=== PATIENT | male | born 1970 | race Caucasian/White ===

== ENCOUNTER 2018-03-27 15:25 | Emergency (ER) | payer MEDICAID ==
[~2018-03-27] VITALS: Ht 170.2 cm; Wt 127.0 kg
[2018-03-27 15:25] VITALS: BP_SYST 147
[2018-03-27] MEDS ORDERED: NACL 0.9% 1,000 ML IV ONE ×2 (15:45→16:45)
[2018-03-27] MEDS ORDERED: ONDANSETRON HCL 4 MG/2 ML VIAL IVP ONE (15:45)
[2018-03-27 16:00] LABS: BILIRUBIN,URINE NEGATIVE (NEGATIVE); BLOOD, URINE NEGATIVE (NEGATIVE); CLARITY/URINE CLEAR (CLEAR); COLOR,URINE YELLOW (YELLOW); GLUCOSE,URINE NEGATIVE (NEGATIVE); KETONES,URINE NEGATIVE (NEGATIVE); LEUKOCYTE ESTERASE ,URINE NEGATIVE (NEGATIVE); NITRITE, URINE NEGATIVE (NEGATIVE); PROTEIN URINE NEGATIVE (NEGATIVE); UROBILINOGEN,URINE 0.2 (0.2-1.0)
[2018-03-27] MEDS ORDERED: LORazepam 2 MG/ML VIAL (FOR ER USE) IVP ONE (16:30)
[2018-03-27 16:41] LABS: BARBITURATE, URINE NEGATIVE (NEG <=200); BENZODIAZEPINE, URINE NEGATIVE (NEG <=150); CANNABINOID, URINE NEGATIVE (NEG <=50); COCAINE, URINE NEGATIVE (NEG <=150); METHAMPHETAMINES SCREEN,URINE NEGATIVE (NEG <=500); PHENCYCLIDINE SCREEN,URINE NEGATIVE (NEG <=25); URINE AMPHETAMINE NEGATIVE (NEG <=500); URINE METHADONE NEGATIVE (NEG <=200)
[2018-03-27 16:42] LABS: OPIATE, URINE NEGATIVE (NEG <=100); UR TRICYCLIC ANTIDEPRESSANTS NEGATIVE (NEG <=300); URINE OXYCODONE SCREEN NEGATIVE (NEG <=100); URINE PROPOXYPHENE SCREEN NEGATIVE (NEG <=300)
[2018-03-27 16:52] LABS: BASOPHILS # (AUTO) 0.1 K/uL (0.0-0.2); BASOPHILS % (AUTO) 0.9 % (0.0-2.0); EOSINOPHILS % (AUTO) 0.2 % (0.0-4.0); HEMATOCRIT 45.8 % (36-54); HEMOGLOBIN 15.7 g/dL (14.0-18.0); LYMPHOCYTES # (AUTO) 1.6 K/uL (1.0-5.5); LYMPHOCYTES % (AUTO) 26.4 % (20.5-51.5); MEAN CORPUSCULAR HEMOGLOBIN 32 pg (27-31); MEAN CORPUSCULAR HGB CONC 34 % (32-36); MEAN CORPUSCULAR VOLUME 92 fL (79.0-98.0); MONOCYTES # (AUTO) 0.6 K/uL (0.0-1.0); MONOCYTES % (AUTO) 9.6 % (1.7-9.3); NEUTROPHILS # (AUTO) 3.9 K/uL (1.8-7.7); NEUTROPHILS % (AUTO) 62.9 % (40.0-70.0); PLATELET COUNT (AUTO) 141 K/uL (130-430); RED BLOOD CELL COUNT(AUTO) 4.96 MIL/uL (4.2-6.2); RED CELL DISTRIBUTION WIDTH 15.3 % (9.0-15.0); WHITE BLOOD COUNT (AUTO) 6.2 K/uL (4.8-10.8)
[2018-03-27 17:08] LABS: ALBUMIN 4.2 g/dL (3.4-4.8); CALCIUM 9.1 mg/dL (8.4-11.0); CREATININE 0.56 mg/dL (0.55-1.30); POTASSIUM 3.3 mmol/L (3.5-5.1); TOTAL BILIRUBIN 1.4 mg/dL (0.0-1.0)
[2018-03-27] MEDS ORDERED: POTASSIUM CHLORIDE 20 MEQ/PKT PACKET PO ONE (17:15)
[2018-03-27 17:42] LABS: ACETAMINOPHEN < 1 ug/mL (1-30)
[2018-03-27 17:43] LABS: ALCOHOL, BLOOD 390 mg/dL (<10)
[2018-03-27] MEDS ORDERED: chlordiazePOXIDE HCL 25 MG CAPSULE PO ONE (20:15)
[2018-03-28] MEDS ORDERED: chlordiazePOXIDE HCL 25 MG CAPSULE PO ONE ×2 (02:00→06:15)
[2018-03-28] MEDS ORDERED: LORazepam 2 MG/ML VIAL (FOR ER USE) IVP ONE ×4 (03:15→15:00)
[2018-03-28] MEDS ORDERED: cloNIDine HCL 0.1 MG TABLET PO ONE (14:30)
[2018-03-28 15:50] VITALS: BP_SYST 141
== END 2018-03-28 15:50 ==
LOC: SED 15:25
DX: R45.851 Suicidal ideations (principal); F10.129 Alcohol abuse with intoxication, unspecified; E87.6 Hypokalemia; Y90.8 Blood alcohol level of 240 mg/100 ml or more
CPT/HCPCS: 36415; 80053; 80307; 81003; 83690; 85025; 96361; 96374; 96375; 96376; 99285; G0480; G0481; G0482; J2060 ×2; J2405; J7030

== ENCOUNTER 2019-09-21 17:28 | Inpatient (IN) | payer MEDICAID ==
[~2019-09-21] VITALS: Ht 172.7 cm; Wt 98.9 kg
[2019-09-21 17:40] VITALS: BP_SYST 137
[2019-09-21] MEDS ORDERED: FOLIC ACID 1 MG, THIAMINE HCL 100 MG, MAGNESIUM SULFATE 1 GM, MVI 10 ML in NACL 0.9% 1,... IV ONE (17:45)
[2019-09-21] MEDS ORDERED: LORazepam 2 MG/ML VIAL IVP ONE ×3 (17:45→20:15)
[2019-09-21 18:13] LABS: BASOPHILS # (AUTO) 0.1 K/uL (0.0-0.2); BASOPHILS % (AUTO) 0.6 % (0.0-2.0); MEAN CORPUSCULAR HGB CONC 35 % (32-36); MEAN CORPUSCULAR VOLUME 90 fL (79.0-98.0); MONOCYTES # (AUTO) 0.7 K/uL (0.0-1.0); RED CELL DISTRIBUTION WIDTH 16.9 % (9.0-15.0)
[2019-09-21] MEDS ORDERED: MVI 10 ML VIAL IV ONE (18:23)
[2019-09-21] MEDS ORDERED: MAGNESIUM SULFATE 1 GM/2 ML VIAL ONE (18:23)
[2019-09-21] MEDS ORDERED: THIAMINE HCL 100 MG/ML VIAL ONE (18:23)
[2019-09-21] MEDS ORDERED: FOLIC ACID 5 MG/ML VIAL IV ONE (18:23)
[2019-09-21 18:25] LABS: HEMOGLOBIN 15.6 g/dL (14.0-18.0); RED BLOOD CELL COUNT(AUTO) 4.94 MIL/uL (4.2-6.2); WHITE BLOOD COUNT (AUTO) 10.2 K/uL (4.8-10.8)
[2019-09-21 18:26] LABS: EOSINOPHILS % (AUTO) 0.1 % (0.0-4.0); HEMATOCRIT 44.5 % (36-54); LYMPHOCYTES # (AUTO) 2.5 K/uL (1.0-5.5); LYMPHOCYTES % (AUTO) 24.7 % (20.5-51.5); MEAN CORPUSCULAR HEMOGLOBIN 32 pg (27-31); MONOCYTES % (AUTO) 7.3 % (1.7-9.3); NEUTROPHILS # (AUTO) 6.8 K/uL (1.8-7.7); NEUTROPHILS % (AUTO) 67.3 % (40.0-70.0); PLATELET COUNT (AUTO) 180 K/uL (130-430)
[2019-09-21] MEDS ORDERED: PANTOPRAZOLE SODIUM 40 MG/VIAL (PROTONIX) IVP ONE (18:30)
[2019-09-21] MEDS ORDERED: MORPHINE 2 MG/ML INJ. SYRINGE IVP ONE (18:30)
[2019-09-21 18:44] LABS: ANION GAP 14 (5-15); CALCIUM 9.3 mg/dL (8.4-11.0); CHLORIDE 101 mmol/L (98-107); CREATININE 0.69 mg/dL (0.55-1.30); GLUCOSE 102 mg/dL (70-99); POTASSIUM 3.8 mmol/L (3.5-5.1); SODIUM SERUM 137 mmol/L (136-145); UREA NITROGEN, BLOOD 5 mg/dL (8-21)
[2019-09-21 18:46] LABS: GFR AFRICAN AMERICAN 157 mL/min (>90)
[2019-09-21 18:53] LABS: ALANINE AMINOTRANSFERASE 36 U/L (12-78); ALBUMIN 4.7 g/dL (3.4-4.8); ALCOHOL, BLOOD 329 mg/dL (<10); ASPARTATE AMINOTRANSFERASE 52 U/L (10-37); TOTAL BILIRUBIN 1.5 mg/dL (0.0-1.0)
[2019-09-21 18:54] LABS: ACETAMINOPHEN < 1 ug/mL (1-30)
[2019-09-21] MEDS ORDERED: FOLIC ACID 1 MG, THIAMINE HCL 100 MG, MAGNESIUM SULFATE 1 GM, MVI 10 ML in NACL 0.9% 1,... IV SCH (20:15)
[2019-09-21] MEDS ORDERED: FAMOTIDINE 20 MG TABLET PO SCH (21:00)
[2019-09-21 21:35] VITALS: BP_SYST 132
[2019-09-21] MEDS ORDERED: ONDANSETRON HCL 4 MG/2 ML VIAL IVP PRN (21:45)
[2019-09-21] MEDS ORDERED: PANTOPRAZOLE SODIUM 80 MG in NS 100 ML IV ONE (21:45)
[2019-09-21] MEDS ORDERED: FLU VACC QS2019-20 36MOS UP/PF 60 MCG/0.5 ML SYRINGE I.M. PRN (22:00)
[2019-09-21] MEDS: PANTOPRAZOLE SODIUM 40 MG in NS 50 ML IV SCH (22:44)
[2019-09-21] MEDS: chlordiazePOXIDE HCL 25 MG CAPSULE PO SCH (22:44)
[2019-09-21 22:45] VITALS: BP_SYST 132
[2019-09-21] MEDS ORDERED: PANTOPRAZOLE SODIUM 40 MG/VIAL (PROTONIX) ONE (22:51)
[2019-09-22 01:36] VITALS: BP_SYST 133
[2019-09-22] MEDS: PANTOPRAZOLE SODIUM 40 MG in NS 50 ML IV SCH ×3 (02:34→23:08)
[2019-09-22] MEDS ORDERED: PANTOPRAZOLE SODIUM 40 MG/VIAL (PROTONIX) ONE (02:44)
[2019-09-22 07:03] LABS: BASOPHILS % (AUTO) 0.6 % (0.0-2.0); EOSINOPHILS % (AUTO) 0.4 % (0.0-4.0); HEMATOCRIT 39.4 % (36-54); HEMOGLOBIN 13.5 g/dL (14.0-18.0); LYMPHOCYTES # (AUTO) 1.4 K/uL (1.0-5.5); LYMPHOCYTES % (AUTO) 19.4 % (20.5-51.5); MEAN CORPUSCULAR HEMOGLOBIN 31 pg (27-31); MEAN CORPUSCULAR HGB CONC 34 % (32-36); MEAN CORPUSCULAR VOLUME 91 fL (79.0-98.0); MONOCYTES # (AUTO) 0.6 K/uL (0.0-1.0); MONOCYTES % (AUTO) 7.7 % (1.7-9.3); NEUTROPHILS # (AUTO) 5.2 K/uL (1.8-7.7); NEUTROPHILS % (AUTO) 71.9 % (40.0-70.0); PLATELET COUNT (AUTO) 108 K/uL (130-430); RED BLOOD CELL COUNT(AUTO) 4.32 MIL/uL (4.2-6.2); RED CELL DISTRIBUTION WIDTH 16.7 % (9.0-15.0); WHITE BLOOD COUNT (AUTO) 7.2 K/uL (4.8-10.8)
[2019-09-22 07:05] LABS: INR 1.2 (0.80-1.20); PROTHROMBIN TIME 11.6 SECS (9.5-12.5)
[2019-09-22 07:15] LABS: CALCIUM 8.4 mg/dL (8.4-11.0); CREATININE 0.64 mg/dL (0.55-1.30); POTASSIUM 3.5 mmol/L (3.5-5.1); TOTAL BILIRUBIN 1.9 mg/dL (0.0-1.0)
[2019-09-22] MEDS ORDERED: MAGNESIUM SULFATE 1 GM, THIAMINE HCL 100 MG in NS 100 ML IV SCH (08:00)
[2019-09-22] MEDS: LORazepam 2 MG/ML VIAL IVP PRN ×3 (08:26→20:38)
[2019-09-22] MEDS ORDERED: SIMETHICONE 40 MG/0.6 ML ML ONE (08:54)
[2019-09-22] MEDS ORDERED: MIDAZOLAM HCL 5 MG/5 ML VIAL ONE (08:54)
[2019-09-22] MEDS: MEPERIDINE HCL/PF 100 MG/ML AMP ONE ×2 (08:59→09:02)
[2019-09-22] MEDS: MIDAZOLAM HCL 5 MG/5 ML VIAL ONE ×3 (08:59→09:08)
[2019-09-22] MEDS ORDERED: NEPHROVITE, (FOLIC ACID/VITAMIN B COMP W-C 1 TAB) PO SCH (09:00)
[2019-09-22] MEDS ORDERED: THIAMINE HCL 100 MG TABLET PO SCH (09:00)
[2019-09-22] MEDS ORDERED: FOLIC ACID 1 MG, MVI 10 ML in NACL 0.9% 1,000 ML IV SCH (09:00)
[2019-09-22] MEDS ORDERED: DIPHENHYDRAMINE INJ 50 MG/ML VIAL ONE (09:09)
[2019-09-22] MEDS: chlordiazePOXIDE HCL 25 MG CAPSULE PO SCH ×3 (11:57→20:37)
[2019-09-22 12:33] VITALS: BP_SYST 141
[2019-09-22 16:28] VITALS: BP_SYST 159
[2019-09-22] MEDS ORDERED: cloNIDine HCL 0.1 MG TABLET PO PRN (17:15)
[2019-09-22] MEDS ORDERED: TEMAZEPAM 15 MG CAPSULE PO PRN (17:15)
[2019-09-22 20:00] VITALS: BP_SYST 148
[2019-09-23] VITALS: BP_SYST 144
[2019-09-23 02:12] VITALS: BP_SYST 133
[2019-09-23] MEDS: PANTOPRAZOLE SODIUM 40 MG in NS 50 ML IV SCH ×2 (04:14→09:01)
[2019-09-23] MEDS: LORazepam 2 MG/ML VIAL IVP PRN ×2 (05:22→09:24)
[2019-09-23 07:58] LABS: BASOPHILS % (AUTO) 0.4 % (0.0-2.0); EOSINOPHILS # (AUTO) 0.1 K/uL (0.0-0.4); EOSINOPHILS % (AUTO) 1.5 % (0.0-4.0); HEMATOCRIT 40.3 % (36-54); HEMOGLOBIN 13.8 g/dL (14.0-18.0); LYMPHOCYTES # (AUTO) 1.2 K/uL (1.0-5.5); LYMPHOCYTES % (AUTO) 18.8 % (20.5-51.5); MEAN CORPUSCULAR HEMOGLOBIN 32 pg (27-31); MEAN CORPUSCULAR HGB CONC 34 % (32-36); MEAN CORPUSCULAR VOLUME 92 fL (79.0-98.0); MONOCYTES # (AUTO) 0.5 K/uL (0.0-1.0); NEUTROPHILS # (AUTO) 4.6 K/uL (1.8-7.7); NEUTROPHILS % (AUTO) 71.3 % (40.0-70.0); PLATELET COUNT (AUTO) 82 K/uL (130-430); RED BLOOD CELL COUNT(AUTO) 4.38 MIL/uL (4.2-6.2); RED CELL DISTRIBUTION WIDTH 16.7 % (9.0-15.0); WHITE BLOOD COUNT (AUTO) 6.4 K/uL (4.8-10.8)
[2019-09-23] MEDS: chlordiazePOXIDE HCL 25 MG CAPSULE PO SCH (08:00)
[2019-09-23 08:03] VITALS: BP_SYST 137
[2019-09-23 08:28] LABS: ALBUMIN 3.9 g/dL (3.4-4.8); CALCIUM 8.9 mg/dL (8.4-11.0); CREATININE 0.59 mg/dL (0.55-1.30); POTASSIUM 3.7 mmol/L (3.5-5.1); TOTAL BILIRUBIN 3.3 mg/dL (0.0-1.0)
== END 2019-09-23 12:06 | disposition left against medical advice (07) | DRG 241 ==
LOC: SED 17:28 → STU 20:03
PROVIDERS: ADMIT Internal Medicine; ATTEND Internal Medicine
PROC: 0DB68ZX Excision of Stomach, Via Natural or Artificial Opening Endoscopic, Diagnostic (ICD-10-PCS; principal; 2019-09-22 09:00)
DX: K29.20 Alcoholic gastritis without bleeding (principal); K22.11 Ulcer of esophagus with bleeding; K76.6 Portal hypertension; R65.10 Systemic inflammatory response syndrome (SIRS) of non-infectious origin without acute organ dysfunction; K70.30 Alcoholic cirrhosis of liver without ascites; K22.2 Esophageal obstruction; K44.9 Diaphragmatic hernia without obstruction or gangrene; F17.210 Nicotine dependence, cigarettes, uncomplicated; F32.9 Major depressive disorder, single episode, unspecified; F41.9 Anxiety disorder, unspecified; Z53.29 Procedure and treatment not carried out because of patient's decision for other reasons; Z79.899 Other long term (current) drug therapy; Z90.49 Acquired absence of other specified parts of digestive tract; K27.9 Peptic ulcer, site unspecified, unspecified as acute or chronic, without hemorrhage or perforation
CPT/HCPCS: 36415; 43239; 80053; 82105; 82140-TC; 82272; 85025; 85610-TC; 87081; 88305; 88312; 88313; 93005; 96374; 96375; 96376; 99285; C9113; G0378; G0480; G0481; G0482; J1200; J2060; J2175; J2250; J2270; J3411; J3475; J3490; J7030

== ENCOUNTER 2021-09-11 07:23 | Inpatient (IN) | payer MEDICAID, SELFPAY ==
[~2021-09-11] VITALS: Ht 167.6 cm; Wt 104.3 kg
[2021-09-11 07:23] VITALS: BP_SYST 133
[2021-09-11] MEDS ORDERED: NACL 0.9% 1,000 ML IV ONE (07:45)
[2021-09-11] MEDS ORDERED: ONDANSETRON HCL 4 MG/2 ML VIAL IVP ONE (07:45)
[2021-09-11] MEDS ORDERED: LORazepam 2 MG/ML VIAL IVP ONE ×4 (07:45→12:45)
[2021-09-11 08:11] LABS: BASOPHILS % (AUTO) 0.2 % (0.0-2.0); HEMATOCRIT 43.6 % (36-54); LYMPHOCYTES # (AUTO) 1.6 K/uL (1.0-5.5); LYMPHOCYTES % (AUTO) 11.2 % (20.5-51.5); MEAN CORPUSCULAR HEMOGLOBIN 31 pg (27-31); MEAN CORPUSCULAR HGB CONC 34 % (32-36); MEAN CORPUSCULAR VOLUME 90 fL (79.0-98.0); MONOCYTES # (AUTO) 1.1 K/uL (0.0-1.0); NEUTROPHILS # (AUTO) 11.4 K/uL (1.8-7.7); NEUTROPHILS % (AUTO) 80.6 % (40.0-70.0); PLATELET COUNT (AUTO) 203 K/uL (130-430); RED BLOOD CELL COUNT(AUTO) 4.84 MIL/uL (4.2-6.2); RED CELL DISTRIBUTION WIDTH 15.5 % (9.0-15.0); WHITE BLOOD COUNT (AUTO) 14.2 K/uL (4.8-10.8)
[2021-09-11 08:23] LABS: ANION GAP 22 (5-15); CALCIUM 9.3 mg/dL (8.4-11.0); CHLORIDE 94 mmol/L (98-107); CREATININE 0.77 mg/dL (0.55-1.30); GLUCOSE 129 mg/dL (70-99); POTASSIUM 3.1 mmol/L (3.5-5.1); SODIUM SERUM 134 mmol/L (136-145); UREA NITROGEN, BLOOD 5 mg/dL (8-21)
[2021-09-11 08:27] LABS: GFR AFRICAN AMERICAN 138 mL/min (>90)
[2021-09-11 08:29] LABS: ALANINE AMINOTRANSFERASE 47 U/L (12-78); ALBUMIN 4.6 g/dL (3.4-4.8); ALCOHOL, BLOOD 149 mg/dL (<10); AMYLASE 89 U/L (0-100); ASPARTATE AMINOTRANSFERASE 54 U/L (10-37); INR 1.1 (0.80-1.20); LIPASE 90 U/L (73-393); PROTHROMBIN TIME 11.3 SECS (9.5-12.5); TOTAL BILIRUBIN 1.6 mg/dL (0.0-1.0)
[2021-09-11 08:38] LABS: ACETONE, SERUM NEGATIVE (NEGATIVE)
[2021-09-11] MEDS ORDERED: NACL 0.9% 2,000 ML IV ONE (08:45)
[2021-09-11] MEDS ORDERED: NEU100 PO (08:47)
[2021-09-11] MEDS ORDERED: MAG HYDROX/AL HYDROX/SIMETH 30 ML, DICYCLOMINE HCL 20 MG, LIDOCAINE VISCOUS 2% 15ML (PO... PO ONE ×3 (09:00)
[2021-09-11] MEDS: D5NS 1,000 ML IV SCH (11:11)
[2021-09-11] MEDS ORDERED: LORazepam 1 MG TABLET ONE (11:13)
[2021-09-11] MEDS ORDERED: LORazepam 1 MG TABLET PO ONE (11:15)
[2021-09-11 12:15] LABS: BARBITURATE, URINE NEGATIVE (NEG <=200); BENZODIAZEPINE, URINE POSITIVE (NEG <=150); CANNABINOID, URINE POSITIVE (NEG <=50); COCAINE, URINE NEGATIVE (NEG <=150); METHAMPHETAMINES SCREEN,URINE NEGATIVE (NEG <=500); OPIATE, URINE NEGATIVE (NEG <=100); PHENCYCLIDINE SCREEN,URINE NEGATIVE (NEG <=25); UR TRICYCLIC ANTIDEPRESSANTS POSITIVE (NEG <=300); URINE AMPHETAMINE NEGATIVE (NEG <=500); URINE METHADONE NEGATIVE (NEG <=200); URINE OXYCODONE SCREEN NEGATIVE (NEG <=100); URINE PROPOXYPHENE SCREEN NEGATIVE (NEG <=300)
[2021-09-11] MEDS ORDERED: IBUPROFEN 800 MG TABLET PO ONE (12:45)
[2021-09-11] MEDS ORDERED: FOLIC ACID 1 MG, THIAMINE HCL 100 MG, MAGNESIUM SULFATE 1 GM, MVI 10 ML in NACL 0.9% 1,... IV SCH (13:45)
[2021-09-11] MEDS: LORazepam 2 MG/ML VIAL IVP PRN ×2 (14:16→23:27)
[2021-09-11 14:38] VITALS: BP_SYST 158
[2021-09-11 20:00] VITALS: BP_SYST 152
[2021-09-11] MEDS: PANTOPRAZOLE SODIUM 40 MG/VIAL (PROTONIX) IVP SCH (23:27)
[2021-09-11] MEDS: THIAMINE HCL 100 MG, MAGNESIUM SULFATE 1 GM in NS 100 ML IV SCH (23:28)
[2021-09-11] MEDS: FOLIC ACID 1 MG, MVI 10 ML in NACL 0.9% 1,000 ML IV SCH (23:28)
[2021-09-12 00:30] VITALS: BP_SYST 138
[2021-09-12] MEDS ORDERED: HYDROcodone/ACETAMIN 5-325 MG TAB (NORCO/ VICODIN) PO PRN (01:45)
[2021-09-12] MEDS ORDERED: ACETAMINOPHEN 325 MG TABLET PO PRN (01:45)
[2021-09-12] MEDS: HYDROcodone/ACETAMIN 10-325 MG TAB PO PRN ×4 (01:46→21:02)
[2021-09-12] MEDS: D5NS 1,000 ML IV SCH ×2 (04:21→16:21)
[2021-09-12 05:52] VITALS: BP_SYST 91
[2021-09-12] MEDS: LORazepam 2 MG/ML VIAL IVP PRN ×4 (05:52→20:16)
[2021-09-12 07:11] LABS: BASOPHILS % (AUTO) 0.4 % (0.0-2.0); EOSINOPHILS % (AUTO) 0.1 % (0.0-4.0); HEMATOCRIT 38.1 % (36-54); HEMOGLOBIN 13.2 g/dL (14.0-18.0); LYMPHOCYTES # (AUTO) 1.4 K/uL (1.0-5.5); LYMPHOCYTES % (AUTO) 24.8 % (20.5-51.5); MEAN CORPUSCULAR HEMOGLOBIN 31 pg (27-31); MEAN CORPUSCULAR HGB CONC 35 % (32-36); MEAN CORPUSCULAR VOLUME 91 fL (79.0-98.0); MONOCYTES # (AUTO) 0.6 K/uL (0.0-1.0); MONOCYTES % (AUTO) 10.4 % (1.7-9.3); NEUTROPHILS # (AUTO) 3.7 K/uL (1.8-7.7); NEUTROPHILS % (AUTO) 64.3 % (40.0-70.0); PLATELET COUNT (AUTO) 75 K/uL (130-430); RED BLOOD CELL COUNT(AUTO) 4.21 MIL/uL (4.2-6.2); RED CELL DISTRIBUTION WIDTH 15.3 % (9.0-15.0); WHITE BLOOD COUNT (AUTO) 5.7 K/uL (4.8-10.8)
[2021-09-12 07:20] LABS: ALBUMIN 3.9 g/dL (3.4-4.8); CALCIUM 8.2 mg/dL (8.4-11.0); CREATININE 0.62 mg/dL (0.55-1.30)
[2021-09-12 08:00] VITALS: BP_SYST 148
[2021-09-12] MEDS: PANTOPRAZOLE SODIUM 40 MG/VIAL (PROTONIX) IVP SCH ×2 (08:05→21:02)
[2021-09-12 08:31] LABS: TOTAL BILIRUBIN 3.4 mg/dL (0.0-1.0)
[2021-09-12] MEDS ORDERED: MIDAZOLAM HCL 5 MG/5 ML VIAL ONE (09:51)
[2021-09-12] MEDS ORDERED: fentaNYL CITRATE/PF 100 MCG/2 ML AMP ONE (09:51)
[2021-09-12] MEDS ORDERED: SIMETHICONE 40 MG/0.6 ML ML ONE (09:51)
[2021-09-12] MEDS ORDERED: DIPHENHYDRAMINE INJ 50 MG/ML VIAL ONE (10:14)
[2021-09-12] MEDS ORDERED: K PHOS 30 MM in NS 250 ML IV ONE (13:45)
[2021-09-12] MEDS: FOLIC ACID 1 MG, MVI 10 ML in NACL 0.9% 1,000 ML IV SCH (14:00)
[2021-09-12] MEDS: THIAMINE HCL 100 MG, MAGNESIUM SULFATE 1 GM in NS 100 ML IV SCH (14:10)
[2021-09-12 16:00] VITALS: BP_SYST 130
[2021-09-12] MEDS: ONDANSETRON HCL 4 MG/2 ML VIAL IVP PRN ×2 (16:44→21:02)
[2021-09-12 20:00] VITALS: BP_SYST 152
[2021-09-13] VITALS: BP_SYST 148
[2021-09-13] MEDS: LORazepam 2 MG/ML VIAL IVP PRN ×4 (00:19→13:48)
[2021-09-13] MEDS: D5NS 1,000 ML IV SCH ×2 (01:59→10:04)
[2021-09-13] MEDS: HYDROcodone/ACETAMIN 10-325 MG TAB PO PRN (02:00)
[2021-09-13] MEDS: ONDANSETRON HCL 4 MG/2 ML VIAL IVP PRN ×3 (02:00→12:55)
[2021-09-13 07:22] LABS: BASOPHILS % (AUTO) 0.8 % (0.0-2.0); EOSINOPHILS # (AUTO) 0.2 K/uL (0.0-0.4); EOSINOPHILS % (AUTO) 5.3 % (0.0-4.0); HEMATOCRIT 36.5 % (36-54); HEMOGLOBIN 12.6 g/dL (14.0-18.0); LYMPHOCYTES % (AUTO) 27.3 % (20.5-51.5); MEAN CORPUSCULAR HEMOGLOBIN 31 pg (27-31); MEAN CORPUSCULAR HGB CONC 35 % (32-36); MEAN CORPUSCULAR VOLUME 91 fL (79.0-98.0); MONOCYTES # (AUTO) 0.3 K/uL (0.0-1.0); MONOCYTES % (AUTO) 9.3 % (1.7-9.3); NEUTROPHILS # (AUTO) 2.2 K/uL (1.8-7.7); NEUTROPHILS % (AUTO) 57.3 % (40.0-70.0); PLATELET COUNT (AUTO) 64 K/uL (130-430); RED BLOOD CELL COUNT(AUTO) 4.02 MIL/uL (4.2-6.2); RED CELL DISTRIBUTION WIDTH 14.8 % (9.0-15.0); WHITE BLOOD COUNT (AUTO) 3.8 K/uL (4.8-10.8)
[2021-09-13 07:53] LABS: CALCIUM 8.3 mg/dL (8.4-11.0); CREATININE 0.58 mg/dL (0.55-1.30); POTASSIUM 3.1 mmol/L (3.5-5.1)
[2021-09-13 08:00] VITALS: BP_SYST 145
[2021-09-13] MEDS: PANTOPRAZOLE SODIUM 40 MG/VIAL (PROTONIX) IVP SCH (08:35)
[2021-09-13 12:00] VITALS: BP_SYST 142
[2021-09-13] MEDS: FOLIC ACID 1 MG, MVI 10 ML in NACL 0.9% 1,000 ML IV SCH (13:49)
[2021-09-13] MEDS: THIAMINE HCL 100 MG, MAGNESIUM SULFATE 1 GM in NS 100 ML IV SCH (13:49)
[2021-09-13] MEDS ORDERED: FOLI-43 PO (15:40)
[2021-09-13] MEDS ORDERED: PRO40 PO (15:40)
[2021-09-13] MEDS ORDERED: THIA100T70 PO (15:40)
[2021-09-13] MEDS ORDERED: MULT-1117 PO (15:40)
[2021-09-13 16:52] VITALS: BP_SYST 145
== END 2021-09-13 17:45 | disposition home or self-care (01) | DRG 242 ==
LOC: SED 07:23 → STU 10:57
PROVIDERS: ADMIT Preventive Medicine Preventive Medicine/Occupational Environmental Medicine; ATTEND Preventive Medicine Preventive Medicine/Occupational Environmental Medicine
PROC: 0DB78ZX Excision of Stomach, Pylorus, Via Natural or Artificial Opening Endoscopic, Diagnostic (ICD-10-PCS; 2021-09-12)
PROC: 0DB38ZX Excision of Lower Esophagus, Via Natural or Artificial Opening Endoscopic, Diagnostic (ICD-10-PCS; principal; 2021-09-12 10:00)
DX: K22.11 Ulcer of esophagus with bleeding (principal); D61.818 Other pancytopenia; K29.71 Gastritis, unspecified, with bleeding; K57.31 Diverticulosis of large intestine without perforation or abscess with bleeding; E87.2 Acidosis; E83.39 Other disorders of phosphorus metabolism; E83.41 Hypermagnesemia; E83.51 Hypocalcemia; E87.1 Hypo-osmolality and hyponatremia; K29.70 Gastritis, unspecified, without bleeding; E87.6 Hypokalemia; R73.9 Hyperglycemia, unspecified; K74.60 Unspecified cirrhosis of liver; Z20.822 Contact with and (suspected) exposure to COVID-19; D72.829 Elevated white blood cell count, unspecified; F10.20 Alcohol dependence, uncomplicated; K70.10 Alcoholic hepatitis without ascites; E83.52 Hypercalcemia; F32.A Depression, unspecified; G62.9 Polyneuropathy, unspecified; K44.9 Diaphragmatic hernia without obstruction or gangrene; Z87.11 Personal history of peptic ulcer disease; Z90.49 Acquired absence of other specified parts of digestive tract; Z79.899 Other long term (current) drug therapy
CPT/HCPCS: 36415; 43239; 76376; 80048; 80053; 80307; 82009; 82150; 83605; 83690; 83735; 84100; 85025; 85610-TC; 85730-TC; 86886; 86900; 86901; 87081; 88305; 88312; 88313; 93005; 96361; 96374; 96375; 99285; C9113; G0378; G0482; J1200; J2001; J2060; J2250; J2405; J3010; J3411; J3475; J3490; J7030; J7050

== ENCOUNTER 2022-03-05 09:32 | Inpatient (IN) | payer MEDICAID ==
[~2022-03-05] VITALS: Ht 167.6 cm; Wt 103.4 kg
[~2022-03-05 09:32] MED LIST: FOLI-43 PO; MULT-1117 PO; NEU100 PO; PRO40 PO; THIA100T70 PO
[2022-03-05 09:38] VITALS: BP_SYST 141
[2022-03-05] MEDS ORDERED: LORazepam 2 MG/ML VIAL IM ONE ×2 (10:00→13:45)
[2022-03-05] MEDS ORDERED: OCTREOTIDE ACETATE 50 MCG/ML AMP IVP ONE (10:00)
[2022-03-05] MEDS ORDERED: NACL 0.9% 2,000 ML IV SCH (10:00)
[2022-03-05] MEDS ORDERED: PROCHLORPERAZINE EDISYLATE 10 MG/2 ML VIAL IM ONE (10:00)
[2022-03-05] MEDS ORDERED: OCTREOTIDE ACETATE 1,250 MCG in NS 243.75 ML IV ONE (10:00)
[2022-03-05] MEDS ORDERED: LORazepam 2 MG/ML VIAL ONE (10:24)
[2022-03-05] MEDS ORDERED: MAGNESIUM SULFATE 50 ML IV ONE (10:30)
[2022-03-05] MEDS ORDERED: LORazepam 2 MG/ML VIAL IVP ONE ×2 (10:30→11:00)
[2022-03-05 11:11] LABS: HEMATOCRIT 38.1 % (36-54); HEMOGLOBIN 13.4 g/dL (14.0-18.0); MEAN CORPUSCULAR HEMOGLOBIN 31 pg (27-31); MEAN CORPUSCULAR HGB CONC 35 % (32-36); MEAN CORPUSCULAR VOLUME 88 fL (79.0-98.0); PLATELET COUNT (AUTO) 108 K/uL (130-430); RED BLOOD CELL COUNT(AUTO) 4.33 MIL/uL (4.2-6.2); RED CELL DISTRIBUTION WIDTH 14.6 % (9.0-15.0); WHITE BLOOD COUNT (AUTO) 10.7 K/uL (4.8-10.8)
[2022-03-05 11:24] LABS: CHLORIDE 90 mmol/L (98-107); CREATININE 0.93 mg/dL (0.55-1.30); GLUCOSE 156 mg/dL (70-99); SODIUM SERUM 132 mmol/L (136-145); UREA NITROGEN, BLOOD 26 mg/dL (8-21)
[2022-03-05 11:35] LABS: INR 1.3 (0.80-1.20); PROTHROMBIN TIME 12.9 SECS (9.5-12.5)
[2022-03-05 11:38] LABS: ALANINE AMINOTRANSFERASE 61 U/L (12-78); ALBUMIN 3.7 g/dL (3.4-4.8); ANION GAP 19 (5-15); ASPARTATE AMINOTRANSFERASE 72 U/L (10-37); TOTAL BILIRUBIN 2.4 mg/dL (0.0-1.0)
[2022-03-05 11:49] LABS: GFR AFRICAN AMERICAN 111 mL/min (>90)
[2022-03-05 11:51] LABS: ALCOHOL, BLOOD 51 mg/dL (<10); POTASSIUM 2.6 mmol/L (3.5-5.1)
[2022-03-05 12:07] LABS: ACETONE, SERUM NEGATIVE (NEGATIVE)
[2022-03-05] MEDS ORDERED: POTASSIUM CHLORIDE 20 MEQ/PKT PACKET PO ONE (14:15)
[2022-03-05] MEDS ORDERED: ALPRAZolam 0.25 MG TABLET PO ONE (14:30)
[2022-03-05] MEDS ORDERED: KCL 20 mEq in 100 mL (PREMIX) 100 ML IV ONE (14:45)
[2022-03-05] MEDS ORDERED: LACTULOSE 20 GM/30 ML UDC PO ONE (15:00)
[2022-03-05] MEDS ORDERED: NACL IV ONE (15:00)
[2022-03-05] MEDS ORDERED: FOLIC ACID IV ONE (15:00)
[2022-03-05] MEDS ORDERED: MVI IV ONE (15:00)
[2022-03-05] MEDS ORDERED: THIAMINE HCL IV ONE (15:00)
[2022-03-05] MEDS ORDERED: FOLIC ACID 1 MG, THIAMINE HCL 100 MG, MAGNESIUM SULFATE 1 GM, MVI 10 ML in NACL 0.9% 1,... IV ONE (16:00)
[2022-03-05] MEDS ORDERED: THIAMINE HCL 100 MG in NS 100 ML IV ONE (17:00)
[2022-03-05] MEDS ORDERED: FOLIC ACID 1 MG, MVI 10 ML in NACL 0.9% 1,000 ML IV ONE (17:00)
[2022-03-05 17:12] LABS: BILIRUBIN,URINE NEGATIVE (NEGATIVE); BLOOD, URINE NEGATIVE (NEGATIVE); CLARITY/URINE CLEAR (CLEAR); COLOR,URINE YELLOW (YELLOW); GLUCOSE,URINE NEGATIVE (NEGATIVE); KETONES,URINE TRACE (NEGATIVE); LEUKOCYTE ESTERASE ,URINE NEGATIVE (NEGATIVE); NITRITE, URINE NEGATIVE (NEGATIVE); PROTEIN URINE NEGATIVE (NEGATIVE)
[2022-03-05 17:25] LABS: BARBITURATE, URINE NEGATIVE (NEG <=200); BENZODIAZEPINE, URINE POSITIVE (NEG <=150); CANNABINOID, URINE POSITIVE (NEG <=50); COCAINE, URINE NEGATIVE (NEG <=150); METHAMPHETAMINES SCREEN,URINE NEGATIVE (NEG <=500); OPIATE, URINE NEGATIVE (NEG <=100); PHENCYCLIDINE SCREEN,URINE NEGATIVE (NEG <=25); URINE AMPHETAMINE NEGATIVE (NEG <=500); URINE METHADONE NEGATIVE (NEG <=200); URINE OXYCODONE SCREEN NEGATIVE (NEG <=100); URINE PROPOXYPHENE SCREEN NEGATIVE (NEG <=300)
[2022-03-05 17:26] LABS: UR TRICYCLIC ANTIDEPRESSANTS POSITIVE (NEG <=300)
[2022-03-05] MEDS ORDERED: POTASSIUM CHLORIDE 20 MEQ in NS 250 ML IV ONE (18:00)
[2022-03-05] MEDS: PANTOPRAZOLE SODIUM 40 MG/VIAL (PROTONIX) IVP SCH (20:56)
[2022-03-05] MEDS: chlordiazePOXIDE HCL 25 MG CAPSULE PO PRN (20:57)
[2022-03-05] MEDS: cloNIDine HCL 0.1 MG TABLET PO SCH (20:57)
[2022-03-05 22:00] VITALS: BP_SYST 132
[2022-03-05 23:00] VITALS: BP_SYST 134
[2022-03-06] VITALS (22 sets, daily range): BP systolic 118–150
[2022-03-06 06:45] LABS: BASOPHILS % (AUTO) 0.3 % (0.0-2.0); EOSINOPHILS % (AUTO) 0.2 % (0.0-4.0); HEMATOCRIT 30.3 % (36-54); HEMOGLOBIN 10.5 g/dL (14.0-18.0); LYMPHOCYTES # (AUTO) 1.4 K/uL (1.0-5.5); LYMPHOCYTES % (AUTO) 20.6 % (20.5-51.5); MEAN CORPUSCULAR HEMOGLOBIN 31 pg (27-31); MEAN CORPUSCULAR HGB CONC 35 % (32-36); MEAN CORPUSCULAR VOLUME 90 fL (79.0-98.0); MONOCYTES # (AUTO) 0.5 K/uL (0.0-1.0); MONOCYTES % (AUTO) 7.4 % (1.7-9.3); NEUTROPHILS # (AUTO) 4.8 K/uL (1.8-7.7); NEUTROPHILS % (AUTO) 71.5 % (40.0-70.0); PLATELET COUNT (AUTO) 64 K/uL (130-430); RED BLOOD CELL COUNT(AUTO) 3.37 MIL/uL (4.2-6.2); RED CELL DISTRIBUTION WIDTH 15.1 % (9.0-15.0); WHITE BLOOD COUNT (AUTO) 6.7 K/uL (4.8-10.8)
[2022-03-06 07:01] LABS: CALCIUM 7.9 mg/dL (8.4-11.0); CREATININE 0.76 mg/dL (0.55-1.30)
[2022-03-06] MEDS: chlordiazePOXIDE HCL 25 MG CAPSULE PO PRN ×3 (08:34→19:59)
[2022-03-06] MEDS ORDERED: FOLIC ACID 1 MG, THIAMINE HCL 100 MG, MAGNESIUM SULFATE 1 GM, MVI 10 ML in NACL 0.9% 1,... IV ONE (08:45)
[2022-03-06] MEDS ORDERED: THIAMINE HCL 100 MG, MAGNESIUM SULFATE 1 GM in NS 100 ML IV ONE ×2 (09:00→18:00)
[2022-03-06] MEDS ORDERED: FOLIC ACID 1 MG, MVI 10 ML in NACL 0.9% 1,000 ML IV ONE ×2 (09:00→18:00)
[2022-03-06] MEDS ORDERED: POTASSIUM CHLORIDE 20 MEQ/PKT PACKET PO ONE (09:15)
[2022-03-06] MEDS: PANTOPRAZOLE SODIUM 40 MG/VIAL (PROTONIX) IVP SCH ×2 (09:37→21:30)
[2022-03-06] MEDS: THIAMINE HCL 100 MG TABLET PO SCH (09:37)
[2022-03-06] MEDS: cloNIDine HCL 0.1 MG TABLET PO SCH ×2 (09:38→21:31)
[2022-03-06] MEDS ORDERED: chlordiazePOXIDE HCL 25 MG CAPSULE PO ONE ×2 (17:55→18:00)
[2022-03-06] MEDS ORDERED: ACETAMINOPHEN 325 MG TABLET PO PRN (20:30)
[2022-03-07] VITALS (24 sets, daily range): BP systolic 106–167
[2022-03-07] MEDS: chlordiazePOXIDE HCL 25 MG CAPSULE PO PRN ×3 (01:02→14:44)
[2022-03-07 07:13] LABS: CALCIUM 7.8 mg/dL (8.4-11.0); CREATININE 0.63 mg/dL (0.55-1.30); POTASSIUM 3.4 mmol/L (3.5-5.1)
[2022-03-07 07:20] LABS: BASOPHILS % (AUTO) 0.5 % (0.0-2.0); EOSINOPHILS # (AUTO) 0.1 K/uL (0.0-0.4); HEMATOCRIT 27.6 % (36-54); HEMOGLOBIN 9.5 g/dL (14.0-18.0); LYMPHOCYTES # (AUTO) 0.7 K/uL (1.0-5.5); LYMPHOCYTES % (AUTO) 18.2 % (20.5-51.5); MEAN CORPUSCULAR HEMOGLOBIN 31 pg (27-31); MEAN CORPUSCULAR HGB CONC 34 % (32-36); MEAN CORPUSCULAR VOLUME 91 fL (79.0-98.0); MONOCYTES # (AUTO) 0.3 K/uL (0.0-1.0); MONOCYTES % (AUTO) 7.4 % (1.7-9.3); NEUTROPHILS # (AUTO) 2.8 K/uL (1.8-7.7); NEUTROPHILS % (AUTO) 70.9 % (40.0-70.0); PLATELET COUNT (AUTO) 60 K/uL (130-430); RED BLOOD CELL COUNT(AUTO) 3.03 MIL/uL (4.2-6.2); RED CELL DISTRIBUTION WIDTH 15.3 % (9.0-15.0)
[2022-03-07] MEDS ORDERED: FOLIC ACID 1 MG, THIAMINE HCL 100 MG, MAGNESIUM SULFATE 1 GM, MVI 10 ML in NACL 0.9% 1,... IV ONE (08:15)
[2022-03-07] MEDS ORDERED: POTASSIUM CHLORIDE 20 MEQ/PKT PACKET PO ONE (08:15)
[2022-03-07] MEDS: PANTOPRAZOLE SODIUM 40 MG/VIAL (PROTONIX) IVP SCH ×2 (08:24→21:34)
[2022-03-07] MEDS: cloNIDine HCL 0.1 MG TABLET PO SCH (08:24)
[2022-03-07] MEDS: THIAMINE HCL 100 MG TABLET PO SCH (08:24)
[2022-03-07] MEDS ORDERED: THIAMINE HCL 100 MG, MAGNESIUM SULFATE 1 GM in NS 100 ML IV ONE (08:30)
[2022-03-07] MEDS ORDERED: FOLIC ACID 1 MG, MVI 10 ML in NACL 0.9% 1,000 ML IV ONE (08:30)
[2022-03-07] MEDS: ONDANSETRON HCL 4 MG/2 ML VIAL IVP PRN ×2 (12:50→19:06)
[2022-03-07] MEDS ORDERED: NOREPINEPHRINE 4 MG/4 ML VIAL IV ONE (13:57)
[2022-03-07] MEDS: cloNIDine HCL 0.1 MG TABLET PO PRN (16:03)
[2022-03-07 21:03] LABS: INR 1.3 (0.80-1.20); PROTHROMBIN TIME 13.3 SECS (9.5-12.5)
[2022-03-07] MEDS: GABAPENTIN 400 MG CAPSULE PO SCH (21:34)
[2022-03-07] MEDS: QUEtiapine FUMARATE 200 MG TAB.SR.24H PO SCH (21:34)
[2022-03-08] VITALS (24 sets, daily range): BP systolic 104–138
[2022-03-08 06:55] LABS: CALCIUM 8.1 mg/dL (8.4-11.0); CREATININE 0.65 mg/dL (0.55-1.30)
[2022-03-08 07:03] LABS: BASOPHILS % (AUTO) 0.4 % (0.0-2.0); EOSINOPHILS # (AUTO) 0.1 K/uL (0.0-0.4); EOSINOPHILS % (AUTO) 3.5 % (0.0-4.0); HEMATOCRIT 27.1 % (36-54); HEMOGLOBIN 9.4 g/dL (14.0-18.0); LYMPHOCYTES # (AUTO) 0.7 K/uL (1.0-5.5); LYMPHOCYTES % (AUTO) 18.7 % (20.5-51.5); MEAN CORPUSCULAR HEMOGLOBIN 32 pg (27-31); MEAN CORPUSCULAR HGB CONC 35 % (32-36); MEAN CORPUSCULAR VOLUME 92 fL (79.0-98.0); MONOCYTES # (AUTO) 0.3 K/uL (0.0-1.0); MONOCYTES % (AUTO) 9.2 % (1.7-9.3); NEUTROPHILS # (AUTO) 2.5 K/uL (1.8-7.7); NEUTROPHILS % (AUTO) 68.2 % (40.0-70.0); PLATELET COUNT (AUTO) 60 K/uL (130-430); RED BLOOD CELL COUNT(AUTO) 2.96 MIL/uL (4.2-6.2); RED CELL DISTRIBUTION WIDTH 15.5 % (9.0-15.0); WHITE BLOOD COUNT (AUTO) 3.7 K/uL (4.8-10.8)
[2022-03-08 07:56] LABS: POTASSIUM 3.8 mmol/L (3.5-5.1)
[2022-03-08] MEDS: GABAPENTIN 400 MG CAPSULE PO SCH ×3 (08:58→20:27)
[2022-03-08] MEDS: THIAMINE HCL 100 MG TABLET PO SCH (08:58)
[2022-03-08] MEDS: PANTOPRAZOLE SODIUM 40 MG/VIAL (PROTONIX) IVP SCH ×2 (08:58→20:27)
[2022-03-08] MEDS: chlordiazePOXIDE HCL 25 MG CAPSULE PO PRN ×2 (08:58→14:32)
[2022-03-08] MEDS: cloNIDine HCL 0.1 MG TABLET PO PRN ×2 (09:00→17:55)
[2022-03-08] MEDS: SERTRALINE HCL 50 MG TABLET PO SCH (09:02)
[2022-03-08] MEDS: ONDANSETRON HCL 4 MG/2 ML VIAL IVP PRN ×2 (09:15→17:55)
[2022-03-08] MEDS: QUEtiapine FUMARATE 200 MG TAB.SR.24H PO SCH (20:28)
[2022-03-09] VITALS (16 sets, daily range): BP systolic 92–131
[2022-03-09] MEDS: chlordiazePOXIDE HCL 25 MG CAPSULE PO PRN ×4 (04:00→23:46)
[2022-03-09] MEDS: ONDANSETRON HCL 4 MG/2 ML VIAL IVP PRN ×2 (05:26→16:21)
[2022-03-09 06:32] LABS: CALCIUM 7.9 mg/dL (8.4-11.0); CREATININE 0.85 mg/dL (0.55-1.30); POTASSIUM 3.6 mmol/L (3.5-5.1)
[2022-03-09 06:38] LABS: BASOPHILS % (AUTO) 0.5 % (0.0-2.0); EOSINOPHILS # (AUTO) 0.2 K/uL (0.0-0.4); EOSINOPHILS % (AUTO) 3.4 % (0.0-4.0); HEMATOCRIT 28.5 % (36-54); HEMOGLOBIN 9.8 g/dL (14.0-18.0); LYMPHOCYTES # (AUTO) 0.9 K/uL (1.0-5.5); LYMPHOCYTES % (AUTO) 18.9 % (20.5-51.5); MEAN CORPUSCULAR HEMOGLOBIN 32 pg (27-31); MEAN CORPUSCULAR HGB CONC 35 % (32-36); MEAN CORPUSCULAR VOLUME 91 fL (79.0-98.0); MONOCYTES # (AUTO) 0.7 K/uL (0.0-1.0); MONOCYTES % (AUTO) 14.4 % (1.7-9.3); NEUTROPHILS # (AUTO) 2.8 K/uL (1.8-7.7); NEUTROPHILS % (AUTO) 62.8 % (40.0-70.0); PLATELET COUNT (AUTO) 70 K/uL (130-430); RED BLOOD CELL COUNT(AUTO) 3.12 MIL/uL (4.2-6.2); RED CELL DISTRIBUTION WIDTH 16.1 % (9.0-15.0); WHITE BLOOD COUNT (AUTO) 4.5 K/uL (4.8-10.8)
[2022-03-09] MEDS: PANTOPRAZOLE SODIUM 40 MG/VIAL (PROTONIX) IVP SCH ×2 (08:27→22:03)
[2022-03-09] MEDS: SERTRALINE HCL 50 MG TABLET PO SCH (08:27)
[2022-03-09] MEDS: GABAPENTIN 400 MG CAPSULE PO SCH ×3 (08:27→20:42)
[2022-03-09] MEDS: THIAMINE HCL 100 MG TABLET PO SCH (08:27)
[2022-03-09] MEDS: cloNIDine HCL 0.1 MG TABLET PO PRN ×2 (11:00→16:21)
[2022-03-09] MEDS: QUEtiapine FUMARATE 200 MG TAB.SR.24H PO SCH (20:42)
[2022-03-10 00:42] VITALS: BP_SYST 117
[2022-03-10] MEDS: ONDANSETRON HCL 4 MG/2 ML VIAL IVP PRN ×2 (04:31→14:29)
[2022-03-10] MEDS: chlordiazePOXIDE HCL 25 MG CAPSULE PO PRN ×3 (05:54→21:24)
[2022-03-10 08:23] VITALS: BP_SYST 121
[2022-03-10] MEDS: THIAMINE HCL 100 MG TABLET PO SCH (08:53)
[2022-03-10] MEDS: SERTRALINE HCL 50 MG TABLET PO SCH (08:53)
[2022-03-10] MEDS: GABAPENTIN 400 MG CAPSULE PO SCH ×3 (08:53→21:24)
[2022-03-10] MEDS: PANTOPRAZOLE SODIUM 40 MG/VIAL (PROTONIX) IVP SCH ×2 (08:54→21:23)
[2022-03-10 11:43] VITALS: BP_SYST 98
[2022-03-10 16:00] VITALS: BP_SYST 105
[2022-03-10 19:00] VITALS: BP_SYST 126
[2022-03-10] MEDS ORDERED: NALOXONE HCL 0.4 MG/ML AMP (NARCAN) IVP PRN (19:30)
[2022-03-10 20:00] VITALS: BP_SYST 126
[2022-03-10] MEDS: HYDROmorphone 1 MG/ML INJ. CARTRIDGE IVP PRN (21:22)
[2022-03-10] MEDS: QUEtiapine FUMARATE 200 MG TAB.SR.24H PO SCH (21:23)
[2022-03-11 00:29] VITALS: BP_SYST 92
[2022-03-11] MEDS: chlordiazePOXIDE HCL 25 MG CAPSULE PO PRN ×3 (03:39→22:12)
[2022-03-11] MEDS: HYDROmorphone 1 MG/ML INJ. CARTRIDGE IVP PRN ×5 (03:44→22:27)
[2022-03-11 06:51] LABS: BASOPHILS % (AUTO) 0.5 % (0.0-2.0); EOSINOPHILS # (AUTO) 0.2 K/uL (0.0-0.4); EOSINOPHILS % (AUTO) 4.2 % (0.0-4.0); HEMOGLOBIN 9.6 g/dL (14.0-18.0); LYMPHOCYTES # (AUTO) 1.2 K/uL (1.0-5.5); LYMPHOCYTES % (AUTO) 30.4 % (20.5-51.5); MEAN CORPUSCULAR HEMOGLOBIN 31 pg (27-31); MEAN CORPUSCULAR HGB CONC 34 % (32-36); MEAN CORPUSCULAR VOLUME 91 fL (79.0-98.0); MONOCYTES % (AUTO) 25.2 % (1.7-9.3); NEUTROPHILS # (AUTO) 1.5 K/uL (1.8-7.7); NEUTROPHILS % (AUTO) 39.7 % (40.0-70.0); PLATELET COUNT (AUTO) 103 K/uL (130-430); RED BLOOD CELL COUNT(AUTO) 3.09 MIL/uL (4.2-6.2); RED CELL DISTRIBUTION WIDTH 15.6 % (9.0-15.0); WHITE BLOOD COUNT (AUTO) 3.9 K/uL (4.8-10.8)
[2022-03-11 07:54] LABS: CALCIUM 8.1 mg/dL (8.4-11.0); CREATININE 0.67 mg/dL (0.55-1.30); POTASSIUM 3.3 mmol/L (3.5-5.1)
[2022-03-11 08:00] VITALS: BP_SYST 104
[2022-03-11] MEDS: THIAMINE HCL 100 MG TABLET PO SCH (08:46)
[2022-03-11] MEDS: GABAPENTIN 400 MG CAPSULE PO SCH ×3 (08:46→20:26)
[2022-03-11] MEDS: PANTOPRAZOLE SODIUM 40 MG/VIAL (PROTONIX) IVP SCH ×2 (08:46→20:26)
[2022-03-11] MEDS: SERTRALINE HCL 50 MG TABLET PO SCH (08:47)
[2022-03-11 11:27] VITALS: BP_SYST 102
[2022-03-11 15:41] VITALS: BP_SYST 100
[2022-03-11 20:00] VITALS: BP_SYST 119
[2022-03-11] MEDS: QUEtiapine FUMARATE 200 MG TAB.SR.24H PO SCH (20:26)
[2022-03-12] VITALS: BP_SYST 121
[2022-03-12 04:00] VITALS: BP_SYST 118
[2022-03-12] MEDS: HYDROmorphone 1 MG/ML INJ. CARTRIDGE IVP PRN ×5 (06:40→22:46)
[2022-03-12 07:19] LABS: BASOPHILS % (AUTO) 0.7 % (0.0-2.0); EOSINOPHILS # (AUTO) 0.2 K/uL (0.0-0.4); EOSINOPHILS % (AUTO) 5.3 % (0.0-4.0); HEMATOCRIT 28.1 % (36-54); HEMOGLOBIN 9.5 g/dL (14.0-18.0); LYMPHOCYTES # (AUTO) 1.1 K/uL (1.0-5.5); LYMPHOCYTES % (AUTO) 31.1 % (20.5-51.5); MEAN CORPUSCULAR HEMOGLOBIN 30 pg (27-31); MEAN CORPUSCULAR HGB CONC 34 % (32-36); MEAN CORPUSCULAR VOLUME 90 fL (79.0-98.0); MONOCYTES # (AUTO) 0.8 K/uL (0.0-1.0); MONOCYTES % (AUTO) 24.1 % (1.7-9.3); NEUTROPHILS # (AUTO) 1.3 K/uL (1.8-7.7); NEUTROPHILS % (AUTO) 38.8 % (40.0-70.0); PLATELET COUNT (AUTO) 113 K/uL (130-430); RED BLOOD CELL COUNT(AUTO) 3.14 MIL/uL (4.2-6.2); WHITE BLOOD COUNT (AUTO) 3.5 K/uL (4.8-10.8)
[2022-03-12 07:54] VITALS: BP_SYST 115
[2022-03-12 08:19] LABS: ALBUMIN 2.7 g/dL (3.4-4.8); CALCIUM 8.2 mg/dL (8.4-11.0); CREATININE 0.92 mg/dL (0.55-1.30); POTASSIUM 3.7 mmol/L (3.5-5.1); TOTAL BILIRUBIN 0.9 mg/dL (0.0-1.0)
[2022-03-12] MEDS: GABAPENTIN 400 MG CAPSULE PO SCH ×3 (08:48→20:18)
[2022-03-12] MEDS: PANTOPRAZOLE SODIUM 40 MG/VIAL (PROTONIX) IVP SCH ×2 (08:48→20:18)
[2022-03-12] MEDS: THIAMINE HCL 100 MG TABLET PO SCH (08:48)
[2022-03-12] MEDS: SERTRALINE HCL 50 MG TABLET PO SCH (08:48)
[2022-03-12] MEDS: chlordiazePOXIDE HCL 25 MG CAPSULE PO PRN (08:49)
[2022-03-12 11:29] VITALS: BP_SYST 100
[2022-03-12] MEDS ORDERED: LACTULOSE 20 GM/30 ML UDC PO ONE (13:45)
[2022-03-12 15:10] VITALS: BP_SYST 126
[2022-03-12] MEDS: QUEtiapine FUMARATE 200 MG TAB.SR.24H PO SCH (20:18)
[2022-03-12 20:23] VITALS: BP_SYST 118
[2022-03-13 00:09] VITALS: BP_SYST 112
[2022-03-13] MEDS: HYDROmorphone 1 MG/ML INJ. CARTRIDGE IVP PRN ×4 (04:46→17:51)
[2022-03-13 08:00] VITALS: BP_SYST 112
[2022-03-13] MEDS: GABAPENTIN 400 MG CAPSULE PO SCH ×3 (09:01→21:26)
[2022-03-13] MEDS: SERTRALINE HCL 50 MG TABLET PO SCH (09:01)
[2022-03-13] MEDS: PANTOPRAZOLE SODIUM 40 MG/VIAL (PROTONIX) IVP SCH ×2 (09:01→21:27)
[2022-03-13] MEDS: THIAMINE HCL 100 MG TABLET PO SCH (09:09)
[2022-03-13 11:32] VITALS: BP_SYST 98
[2022-03-13 15:43] VITALS: BP_SYST 113
[2022-03-13] MEDS: chlordiazePOXIDE HCL 25 MG CAPSULE PO PRN (18:06)
[2022-03-13 20:10] VITALS: BP_SYST 114
[2022-03-13] MEDS: QUEtiapine FUMARATE 200 MG TAB.SR.24H PO SCH (21:27)
[2022-03-14] MEDS: HYDROmorphone 1 MG/ML INJ. CARTRIDGE IVP PRN ×2 (00:16→04:41)
[2022-03-14 01:08] VITALS: BP_SYST 105
[2022-03-14] MEDS ORDERED: LIB25 PO ×2 (07:49→07:51)
[2022-03-14] MEDS ORDERED: QUET200T5 PO (07:51)
[2022-03-14] MEDS ORDERED: SERT100T PO (07:52)
[2022-03-14] MEDS ORDERED: PRO40 PO ×2 (07:56→07:58)
[2022-03-14] MEDS: PANTOPRAZOLE SODIUM 40 MG/VIAL (PROTONIX) IVP SCH (09:00)
[2022-03-14] MEDS: GABAPENTIN 400 MG CAPSULE PO SCH (09:10)
[2022-03-14] MEDS: THIAMINE HCL 100 MG TABLET PO SCH (09:10)
[2022-03-14] MEDS: SERTRALINE HCL 50 MG TABLET PO SCH (09:11)
[2022-03-14 09:15] VITALS: BP_SYST 116
== END 2022-03-14 09:27 | disposition home or self-care (01) | DRG 280 ==
LOC: SED 09:32 → SIC 15:59 → STU 03-09 18:46 → SMU 03-12 13:10
PROVIDERS: ADMIT Family Medicine; ATTEND Family Medicine
DX: K74.60 Unspecified cirrhosis of liver (principal); K70.9 Alcoholic liver disease, unspecified; R65.11 Systemic inflammatory response syndrome (SIRS) of non-infectious origin with acute organ dysfunction; E87.2 Acidosis; E44.1 Mild protein-calorie malnutrition; F10.239 Alcohol dependence with withdrawal, unspecified; R50.9 Fever, unspecified; D64.9 Anemia, unspecified; E87.6 Hypokalemia; I10 Essential (primary) hypertension; Y90.9 Presence of alcohol in blood, level not specified; Z20.822 Contact with and (suspected) exposure to COVID-19; Z79.899 Other long term (current) drug therapy; Z56.0 Unemployment, unspecified; Z68.36 Body mass index [BMI] 36.0-36.9, adult
CPT/HCPCS: 36415; 70450-TC; 71045; 76376; 76700-TC; 80048; 80053; 80307; 81003; 82009; 82140; 82150; 83051; 83605; 83690; 83735; 85014; 85025; 85048; 85049-TC; 85610-TC; 85730-TC; 86886; 86900; 86901; 87040; 87081; 93005; 96361; 96372; 96374; 96375; 97116-GP; 97530-GP; 99285; C9113; G0378; G0482; J1170; J2060; J2354; J2405; J3411; J3475; J3480; J3490; J7030; J7050

== ENCOUNTER 2022-05-13 18:29 | Emergency (ER) | payer MEDICAID ==
[~2022-05-13] VITALS: Ht 167.6 cm; Wt 108.0 kg
[~2022-05-13 18:29] MED LIST changes: -FOLI-43 PO; +LIB25 PO; -MULT-1117 PO; +QUET200T5 PO; +SERT100T PO
[2022-05-13 18:41] VITALS: BP_SYST 147
[2022-05-13] MEDS ORDERED: FAMOTIDINE PF 20 MG/2 ML VIAL IVP ONE (19:00)
[2022-05-13] MEDS ORDERED: KETOROLAC TROMETHAMINE 15 MG VIAL IVP ONE (19:00)
[2022-05-13] MEDS ORDERED: ONDANSETRON HCL 4 MG/2 ML VIAL IVP ONE ×2 (19:00→21:15)
[2022-05-13 19:20] LABS: EOSINOPHILS # (AUTO) 0.1 K/uL (0.0-0.4); EOSINOPHILS % (AUTO) 1.8 % (0.0-4.0); HEMATOCRIT 32.2 % (36-54); HEMOGLOBIN 10.6 g/dL (14.0-18.0); LYMPHOCYTES # (AUTO) 1.4 K/uL (1.0-5.5); LYMPHOCYTES % (AUTO) 31.2 % (20.5-51.5); MEAN CORPUSCULAR HEMOGLOBIN 25 pg (27-31); MEAN CORPUSCULAR HGB CONC 33 % (32-36); MEAN CORPUSCULAR VOLUME 76 fL (79.0-98.0); MONOCYTES # (AUTO) 0.5 K/uL (0.0-1.0); MONOCYTES % (AUTO) 11.2 % (1.7-9.3); NEUTROPHILS # (AUTO) 2.4 K/uL (1.8-7.7); NEUTROPHILS % (AUTO) 54.8 % (40.0-70.0); PLATELET COUNT (AUTO) 133 K/uL (130-430); RED BLOOD CELL COUNT(AUTO) 4.26 MIL/uL (4.2-6.2); RED CELL DISTRIBUTION WIDTH 21.6 % (9.0-15.0); WHITE BLOOD COUNT (AUTO) 4.5 K/uL (4.8-10.8)
[2022-05-13 19:32] LABS: CALCIUM 7.7 mg/dL (8.4-11.0); CREATININE 0.81 mg/dL (0.55-1.30); POTASSIUM 3.5 mmol/L (3.5-5.1)
[2022-05-13 19:38] LABS: ALBUMIN 3.3 g/dL (3.4-4.8); TOTAL BILIRUBIN 0.9 mg/dL (0.0-1.0)
[2022-05-13] MEDS ORDERED: FAMOTIDINE 20 MG TABLET PO ONE (20:30)
[2022-05-13] MEDS ORDERED: ONDANSETRON 4 MG ODT TAB PO ONE (20:30)
[2022-05-13] MEDS ORDERED: MAG-AL HYDROX/SIMETH 30 ML UDC PO ONE (20:30)
[2022-05-13] MEDS ORDERED: KETOROLAC TROMETHAMINE 30 MG VIAL IM ONE (20:30)
[2022-05-13] MEDS ORDERED: LORazepam 2 MG/ML VIAL IVP ONE (21:30)
[2022-05-13] MEDS ORDERED: NACL 0.9% 1,000 ML IV ONE (21:45)
[2022-05-13] MEDS ORDERED: LIB25 PO (22:09)
[2022-05-13] MEDS ORDERED: FAMO20TA8 PO (22:15)
[2022-05-13 23:35] VITALS: BP_SYST 107
== END 2022-05-13 23:31 | disposition home or self-care (01) ==
LOC: SED 18:29
DX: K29.20 Alcoholic gastritis without bleeding (principal); E86.0 Dehydration; R10.11 Right upper quadrant pain; F10.239 Alcohol dependence with withdrawal, unspecified; Y90.6 Blood alcohol level of 120-199 mg/100 ml; Z79.899 Other long term (current) drug therapy
CPT/HCPCS: 36415; 80053; 83690; 85025; 96372; 96374; 96375; 99284; J1885; J2060; J2405; J3490

== ENCOUNTER 2022-06-06 22:30 | Emergency (ER) | payer MEDICAID ==
[~2022-06-06] VITALS: Ht 167.6 cm; Wt 108.0 kg
[~2022-06-06 22:30] MED LIST changes: +FAMO20TA8 PO
[2022-06-06 22:40] VITALS: BP_SYST 156
[2022-06-07 01:58] VITALS: BP_SYST 140
[2022-06-07 02:00] LABS: MEAN CORPUSCULAR HGB CONC 32 % (32-36)
[2022-06-07 02:02] LABS: BILIRUBIN,URINE NEGATIVE (NEGATIVE); BLOOD, URINE NEGATIVE (NEGATIVE); CLARITY/URINE CLEAR (CLEAR); COLOR,URINE YELLOW (YELLOW); GLUCOSE,URINE NEGATIVE (NEGATIVE); KETONES,URINE NEGATIVE (NEGATIVE); LEUKOCYTE ESTERASE ,URINE NEGATIVE (NEGATIVE); NITRITE, URINE NEGATIVE (NEGATIVE); PH,URINE 6.5 (5.0-8.0); PROTEIN URINE NEGATIVE (NEGATIVE); UROBILINOGEN,URINE 0.2 (0.2-1.0)
[2022-06-07 02:24] LABS: BASOPHILS # (AUTO) 0.1 K/uL (0.0-0.2); BASOPHILS % (AUTO) 1.2 % (0.0-2.0); EOSINOPHILS # (AUTO) 0.2 K/uL (0.0-0.4); EOSINOPHILS % (AUTO) 3.9 % (0.0-4.0); HEMATOCRIT 34.6 % (36-54); LYMPHOCYTES # (AUTO) 2.5 K/uL (1.0-5.5); LYMPHOCYTES % (AUTO) 40.2 % (20.5-51.5); MEAN CORPUSCULAR HEMOGLOBIN 23 pg (27-31); MEAN CORPUSCULAR VOLUME 74 fL (79.0-98.0); MONOCYTES # (AUTO) 0.5 K/uL (0.0-1.0); NEUTROPHILS # (AUTO) 2.9 K/uL (1.8-7.7); NEUTROPHILS % (AUTO) 46.7 % (40.0-70.0); PLATELET COUNT (AUTO) 230 K/uL (130-430); RED BLOOD CELL COUNT(AUTO) 4.69 MIL/uL (4.2-6.2); RED CELL DISTRIBUTION WIDTH 21.7 % (9.0-15.0); WHITE BLOOD COUNT (AUTO) 6.3 K/uL (4.8-10.8)
[2022-06-07 02:32] LABS: CALCIUM 8.2 mg/dL (8.4-11.0); CREATININE 0.8 mg/dL (0.55-1.30); POTASSIUM 3.8 mmol/L (3.5-5.1)
[2022-06-07 02:39] LABS: ALBUMIN 3.5 g/dL (3.4-4.8); TOTAL BILIRUBIN 0.9 mg/dL (0.0-1.0)
== END 2022-06-07 02:40 | disposition left against medical advice (07) ==
LOC: SED 22:30
DX: R25.1 Tremor, unspecified (principal); F10.239 Alcohol dependence with withdrawal, unspecified; Y90.6 Blood alcohol level of 120-199 mg/100 ml; Z79.899 Other long term (current) drug therapy
CPT/HCPCS: 36415; 80053; 81003; 83690; 85025; 99283

== ENCOUNTER 2022-11-14 10:53 | Emergency (ER) | payer MEDICAID ==
[~2022-11-14] VITALS: Ht 170.2 cm; Wt 79.4 kg
[2022-11-14 11:00] VITALS: BP_SYST 158
[2022-11-14] MEDS ORDERED: HALOPERIDOL LACTATE 5 MG/ML VIAL ONE (11:21)
[2022-11-14] MEDS ORDERED: HALOPERIDOL LACTATE 5 MG/ML VIAL IM ONE (11:30)
[2022-11-14 11:59] LABS: BASOPHILS # (AUTO) 0.1 K/uL (0.0-0.2); BASOPHILS % (AUTO) 0.7 % (0.0-2.0); HEMATOCRIT 39.8 % (36-54); HEMOGLOBIN 12.9 g/dL (14.0-18.0); LYMPHOCYTES # (AUTO) 0.8 K/uL (1.0-5.5); LYMPHOCYTES % (AUTO) 8.6 % (20.5-51.5); MEAN CORPUSCULAR HEMOGLOBIN 25 pg (27-31); MEAN CORPUSCULAR HGB CONC 32 % (32-36); MEAN CORPUSCULAR VOLUME 76 fL (79.0-98.0); MONOCYTES # (AUTO) 0.5 K/uL (0.0-1.0); MONOCYTES % (AUTO) 5.7 % (1.7-9.3); PLATELET COUNT (AUTO) 292 K/uL (130-430); RED BLOOD CELL COUNT(AUTO) 5.27 MIL/uL (4.2-6.2); RED CELL DISTRIBUTION WIDTH 18.9 % (9.0-15.0); WHITE BLOOD COUNT (AUTO) 9.4 K/uL (4.8-10.8)
[2022-11-14] MEDS ORDERED: NACL 0.9% 2,000 ML IV ONE ×2 (12:15→14:15)
[2022-11-14] MEDS ORDERED: LORazepam 2 MG/ML VIAL IVP ONE (12:15)
[2022-11-14 12:16] LABS: ANION GAP 20 (5-15); CALCIUM 9.7 mg/dL (8.4-11.0); CHLORIDE 95 mmol/L (98-107); CREATININE 0.67 mg/dL (0.55-1.30); GFR AFRICAN AMERICAN 161 mL/min (>90); GLUCOSE 137 mg/dL (70-99); UREA NITROGEN, BLOOD 9 mg/dL (8-21)
[2022-11-14 12:22] LABS: ALANINE AMINOTRANSFERASE 56 U/L (12-78); ALBUMIN 4.2 g/dL (3.4-4.8); AMYLASE 77 U/L (0-100); ASPARTATE AMINOTRANSFERASE 63 U/L (10-37); LACTATE DEHYDROGENASE 261 U/L (85-227); LIPASE 102 U/L (73-393); TOTAL BILIRUBIN 1.6 mg/dL (0.0-1.0)
[2022-11-14 12:23] LABS: C-REACTIVE PROTEIN QUANT < 0.2 mg/dL (0-0.5)
[2022-11-14 12:25] LABS: ACETONE, SERUM NEGATIVE (NEGATIVE)
[2022-11-14 12:39] LABS: INR 1.1 (0.80-1.20); PROTHROMBIN TIME 11.4 SECS (9.5-12.5)
[2022-11-14] MEDS ORDERED: ONDA-8 TL (15:12)
[2022-11-14] MEDS ORDERED: LORA-259 PO (15:12)
== END 2022-11-14 16:30 | disposition home or self-care (01) ==
LOC: SED 10:53
DX: F10.10 Alcohol abuse, uncomplicated (principal); R11.15 Cyclical vomiting syndrome unrelated to migraine; R10.13 Epigastric pain; Y90.6 Blood alcohol level of 120-199 mg/100 ml; R10.11 Right upper quadrant pain; Z79.899 Other long term (current) drug therapy
CPT/HCPCS: 99285; 74176; 96374; 96361; 80053; 82009; 82150; 83615; 83690; 85025; 85610; 85730; 86140; 36415; 76376; 83605; 96372; G0482; J1630; J2060; J7030

== ENCOUNTER 2023-07-15 16:08 | Emergency (ER) | payer MEDICAID ==
[~2023-07-15] VITALS: Ht 167.6 cm; Wt 86.2 kg
[~2023-07-15 16:08] MED LIST changes: +LORA-259 PO; +ONDA-8 TL
[2023-07-15 16:31] VITALS: BP_SYST 122; PULSE 77; RESP 22; TEMP 98.3; O2SAT 98
[2023-07-15 17:05] LABS: BASOPHILS % (AUTO) 0.6 % (0.0-2.0); EOSINOPHILS # (AUTO) 0.1 K/uL (0.0-0.4); EOSINOPHILS % (AUTO) 1.2 % (0.0-4.0); HEMATOCRIT 41.6 % (36-54); HEMOGLOBIN 13.4 g/dL (14.0-18.0); LYMPHOCYTES # (AUTO) 1.5 K/uL (1.0-5.5); MEAN CORPUSCULAR HEMOGLOBIN 27 pg (27-31); MEAN CORPUSCULAR HGB CONC 32 % (32-36); MEAN CORPUSCULAR VOLUME 85 fL (79.0-98.0); MONOCYTES # (AUTO) 0.4 K/uL (0.0-1.0); MONOCYTES % (AUTO) 7.8 % (1.7-9.3); NEUTROPHILS # (AUTO) 3.6 K/uL (1.8-7.7); NEUTROPHILS % (AUTO) 63.4 % (40.0-70.0); PLATELET COUNT (AUTO) 122 K/uL (130-430); RED BLOOD CELL COUNT(AUTO) 4.92 MIL/uL (4.2-6.2); RED CELL DISTRIBUTION WIDTH 18.1 % (9.0-15.0); WHITE BLOOD COUNT (AUTO) 5.7 K/uL (4.8-10.8)
[2023-07-15 17:24] LABS: ALBUMIN 4.1 g/dL (3.4-4.8); CALCIUM 9.2 mg/dL (8.4-11.0); CREATININE 0.72 mg/dL (0.55-1.30); POTASSIUM 3.1 mmol/L (3.5-5.1); TOTAL BILIRUBIN 1.5 mg/dL (0.0-1.0); TOTAL PROTEIN, SERUM 7.8 g/dL (6.4-8.3)
[2023-07-15 18:51] VITALS: BP_SYST 133; PULSE 80; RESP 20; TEMP 98; O2SAT 99
[2023-07-15 18:51] LABS: BILIRUBIN,URINE NEGATIVE (NEGATIVE); BLOOD, URINE TRACE (NEGATIVE); CLARITY/URINE CLEAR (CLEAR); COLOR,URINE YELLOW (YELLOW); GLUCOSE,URINE NEGATIVE (NEGATIVE); KETONES,URINE NEGATIVE (NEGATIVE); LEUKOCYTE ESTERASE ,URINE NEGATIVE (NEGATIVE); NITRITE, URINE NEGATIVE (NEGATIVE); PH,URINE 6.5 (5.0-8.0); PROTEIN URINE NEGATIVE (NEGATIVE); UROBILINOGEN,URINE 0.2 (0.2-1.0)
[2023-07-15 18:54] LABS: ACETAMINOPHEN < 1 ug/mL (1-30); SALICYLATE < 1 mg/dL (3-30)
[2023-07-15 18:55] LABS: BARBITURATE, URINE NEGATIVE (NEG <=200); BENZODIAZEPINE, URINE POSITIVE (NEG <=150); CANNABINOID, URINE POSITIVE (NEG <=50); COCAINE, URINE NEGATIVE (NEG <=150); METHAMPHETAMINES SCREEN,URINE NEGATIVE (NEG <=500); OPIATE, URINE NEGATIVE (NEG <=100); PHENCYCLIDINE SCREEN,URINE NEGATIVE (NEG <=25); URINE AMPHETAMINE NEGATIVE (NEG <=500); URINE METHADONE NEGATIVE (NEG <=200); URINE OXYCODONE SCREEN NEGATIVE (NEG <=100); URINE PROPOXYPHENE SCREEN NEGATIVE (NEG <=300)
[2023-07-15 18:56] LABS: UR TRICYCLIC ANTIDEPRESSANTS NEGATIVE (NEG <=300)
[2023-07-15 19:21] LABS: BACTERIA,URINE RARE /HPF (None Seen); MUCUS,URINE None Seen /LPF (None Seen); RBC,URINE 0-3 /HPF (0-3); WBC,URINE 0-3 /HPF (0-3)
[2023-07-15] MEDS ORDERED: NS 500 ML IV ONE (19:45)
[2023-07-15] MEDS ORDERED: PANTOPRAZOLE SODIUM 40 MG/VIAL (PROTONIX) IVP ONE (19:45)
[2023-07-15] MEDS ORDERED: MAG HYDROX/AL HYDROX/SIMETH 30 ML, DICYCLOMINE HCL 20 MG, LIDOCAINE VISCOUS 2% 15ML (PO... PO ONE ×3 (19:45)
[2023-07-15] MEDS ORDERED: DICYCLOMINE HCL 10 MG/5 ML SOLUTION ONE (20:00)
[2023-07-15] MEDS ORDERED: MAG-AL HYDROX/SIMETH 30 ML UDC ONE (20:00)
== END 2023-07-15 20:25 | disposition left against medical advice (07) ==
LOC: SED 16:08
DX: R10.13 Epigastric pain (principal); F10.129 Alcohol abuse with intoxication, unspecified; R11.2 Nausea with vomiting, unspecified; R19.7 Diarrhea, unspecified; Z79.899 Other long term (current) drug therapy; Y90.6 Blood alcohol level of 120-199 mg/100 ml
CPT/HCPCS: 99284; 74176; 80307; 80053; 83690; 85025; 36415; 93005; 76376; 81000; J7040; G0480; G0481; G0482; C9113

== ENCOUNTER 2024-08-28 17:49 | Inpatient (IN) | payer MEDICAID ==
[~2024-08-28] VITALS: Ht 177.8 cm; Wt 99.8 kg
[2024-08-28 17:49] VITALS: BP_SYST 142; PULSE 97; RESP 17; TEMP 97.7; O2SAT 96
[~2024-08-28 17:49] MED LIST changes: +CHLO25CA11 PO; -LIB25 PO
[2024-08-28] MEDS: NACL 0.9% 1,000 ML IV ONE (18:56)
[2024-08-28 19:14] LABS: WHITE BLOOD COUNT (AUTO) 12.7 K/uL (4.8-10.8)
[2024-08-28 19:25] LABS: ALBUMIN 4.3 g/dL (3.4-4.8); CALCIUM 8.8 mg/dL (8.4-11.0); CREATININE 0.88 mg/dL (0.55-1.30); POTASSIUM 3.6 mmol/L (3.5-5.1); TOTAL BILIRUBIN 1.2 mg/dL (0.0-1.0)
[2024-08-28 19:26] LABS: BILIRUBIN,DIRECT 0.3 mg/dL (0.0-0.3)
[2024-08-28 19:30] LABS: BASOPHILS % (AUTO) 0.2 % (0.0-2.0); HEMATOCRIT 51.3 % (36-54); HEMOGLOBIN 17.7 g/dL (14.0-18.0); LYMPHOCYTES # (AUTO) 1.7 K/uL (1.0-5.5); LYMPHOCYTES % (AUTO) 13.6 % (20.5-51.5); MEAN CORPUSCULAR HEMOGLOBIN 31 pg (27-31); MEAN CORPUSCULAR HGB CONC 35 % (32-36); MEAN CORPUSCULAR VOLUME 89 fL (79.0-98.0); MONOCYTES # (AUTO) 0.8 K/uL (0.0-1.0); MONOCYTES % (AUTO) 6.5 % (1.7-9.3); NEUTROPHILS # (AUTO) 10.1 K/uL (1.8-7.7); NEUTROPHILS % (AUTO) 79.7 % (40.0-70.0); PLATELET COUNT (AUTO) 151 K/uL (130-430); RED BLOOD CELL COUNT(AUTO) 5.78 MIL/uL (4.2-6.2); RED CELL DISTRIBUTION WIDTH 13.9 % (9.0-15.0)
[2024-08-28] MEDS: HALOPERIDOL LACTATE 5 MG/ML VIAL IM ONE ×2 (19:47→22:47)
[2024-08-28] MEDS: LORazepam 2 MG/ML VIAL IM ONE ×2 (19:47→22:43)
[2024-08-28] MEDS: DIPHENHYDRAMINE INJ 50 MG/ML VIAL IM ONE ×2 (19:48→22:48)
[2024-08-29] VITALS (7 sets, daily range): BP systolic 142–167; PULSE 103–128; RESP 18–24; TEMP 97.5–98.6; O2SAT 96–98
[2024-08-29] MEDS: NACL 0.9% 1,000 ML IV ONE (01:33)
[2024-08-29] MEDS: LORazepam 2 MG/ML VIAL IVP ONE ×2 (02:09→04:41)
[2024-08-29] MEDS: DIPHENHYDRAMINE INJ 50 MG/ML VIAL IVP ONE (05:25)
[2024-08-29] MEDS: HALOPERIDOL LACTATE 5 MG/ML VIAL IVP ONE ×2 (05:31→09:48)
[2024-08-29] MEDS: NACL 0.9% 1,000 ML IV SCH (05:41)
[2024-08-29] MEDS: chlordiazePOXIDE HCL 25 MG CAPSULE PO SCH (09:52)
[2024-08-29] MEDS: THIAMINE HCL 100 MG TABLET PO SCH (09:52)
[2024-08-29] MEDS: FOLIC ACID 1 MG TABLET PO SCH (09:53)
[2024-08-29] MEDS: LORazepam 2 MG/ML VIAL IVP PRN (11:49)
[2024-08-29] MEDS: PANTOPRAZOLE SODIUM 40 MG TAB PO ONE (11:53)
[2024-08-29] MEDS: SERTRALINE HCL 50 MG TABLET PO ONE (11:53)
[2024-08-29] MEDS: NICOTINE 21 MG/24 HR PATCH.TD24 TD ONE (11:53)
[2024-08-29] MEDS: GABAPENTIN 100 MG CAPSULE PO SCH (15:16)
[2024-08-29] MEDS: OLANZapine 10 MG TABLET PO SCH (20:34)
[2024-08-29] MEDS: QUEtiapine FUMARATE 200 MG TAB.SR.24H PO SCH (20:47)
[2024-08-30] VITALS: BP_SYST 144; PULSE 108; RESP 20; TEMP 98.7; O2SAT 97
[2024-08-30 08:00] VITALS: BP_SYST 105; PULSE 84; RESP 20; TEMP 98.2; O2SAT 98
[2024-08-30 08:09] VITALS: BP_SYST 105; PULSE 84; RESP 20; TEMP 98.2; O2SAT 98
[2024-08-30] MEDS: SERTRALINE HCL 50 MG TABLET PO SCH (09:40)
[2024-08-30] MEDS: FLUoxetine HCL 20 MG CAPSULE (PROzac) PO SCH (09:40)
[2024-08-30] MEDS: PANTOPRAZOLE SODIUM 40 MG TAB PO SCH (09:41)
[2024-08-30] MEDS: NICOTINE 21 MG/24 HR PATCH.TD24 TD SCH (09:54)
[2024-08-30 12:01] VITALS: BP_SYST 133; PULSE 116; RESP 20; TEMP 97.9; O2SAT 98
[2024-08-30 20:30] VITALS: BP_SYST 131; PULSE 93; RESP 20; O2SAT 98
[2024-08-31 04:47] VITALS: BP_SYST 131; PULSE 98; RESP 18; O2SAT 98
[2024-08-31 08:07] VITALS: BP_SYST 149; PULSE 125; RESP 16; TEMP 97.5; O2SAT 98
[2024-08-31 10:28] LABS: BASOPHILS % (AUTO) 0.5 % (0.0-2.0); EOSINOPHILS # (AUTO) 0.1 K/uL (0.0-0.4); EOSINOPHILS % (AUTO) 1.6 % (0.0-4.0); HEMATOCRIT 39.2 % (36-54); HEMOGLOBIN 13.4 g/dL (14.0-18.0); LYMPHOCYTES # (AUTO) 0.7 K/uL (1.0-5.5); MEAN CORPUSCULAR HEMOGLOBIN 31 pg (27-31); MEAN CORPUSCULAR HGB CONC 34 % (32-36); MEAN CORPUSCULAR VOLUME 90 fL (79.0-98.0); MONOCYTES # (AUTO) 0.3 K/uL (0.0-1.0); MONOCYTES % (AUTO) 6.2 % (1.7-9.3); NEUTROPHILS # (AUTO) 3.8 K/uL (1.8-7.7); NEUTROPHILS % (AUTO) 77.7 % (40.0-70.0); PLATELET COUNT (AUTO) 71 K/uL (130-430); RED BLOOD CELL COUNT(AUTO) 4.36 MIL/uL (4.2-6.2); RED CELL DISTRIBUTION WIDTH 13.8 % (9.0-15.0); WHITE BLOOD COUNT (AUTO) 4.9 K/uL (4.8-10.8)
[2024-08-31 11:09] LABS: ALBUMIN 3.6 g/dL (3.4-4.8); CALCIUM 8.2 mg/dL (8.4-11.0); CREATININE 0.81 mg/dL (0.55-1.30); TOTAL BILIRUBIN 2.4 mg/dL (0.0-1.0); TOTAL PROTEIN, SERUM 6.5 g/dL (6.4-8.3)
[2024-08-31 11:46] VITALS: BP_SYST 146; PULSE 93; RESP 15; TEMP 97.5; O2SAT 100
[2024-08-31 16:14] VITALS: BP_SYST 128; PULSE 85; RESP 20; TEMP 98.3
[2024-08-31 20:00] VITALS: O2SAT 98
[2024-08-31 20:30] VITALS: BP_SYST 153; PULSE 93; RESP 18; TEMP 97.8; O2SAT 97
[2024-09-01] VITALS: BP_SYST 146; PULSE 120; RESP 16; TEMP 98; O2SAT 95
[2024-09-01 08:10] VITALS: BP_SYST 159; PULSE 126; RESP 16; TEMP 99.5; O2SAT 97
[2024-09-01 09:39] LABS: BASOPHILS % (AUTO) 0.4 % (0.0-2.0); EOSINOPHILS # (AUTO) 0.1 K/uL (0.0-0.4); EOSINOPHILS % (AUTO) 1.1 % (0.0-4.0); HEMATOCRIT 39.7 % (36-54); HEMOGLOBIN 13.7 g/dL (14.0-18.0); LYMPHOCYTES # (AUTO) 0.8 K/uL (1.0-5.5); LYMPHOCYTES % (AUTO) 13.4 % (20.5-51.5); MEAN CORPUSCULAR HEMOGLOBIN 31 pg (27-31); MEAN CORPUSCULAR HGB CONC 34 % (32-36); MEAN CORPUSCULAR VOLUME 89 fL (79.0-98.0); MONOCYTES # (AUTO) 0.4 K/uL (0.0-1.0); MONOCYTES % (AUTO) 6.2 % (1.7-9.3); NEUTROPHILS # (AUTO) 4.5 K/uL (1.8-7.7); NEUTROPHILS % (AUTO) 78.9 % (40.0-70.0); PLATELET COUNT (AUTO) 77 K/uL (130-430); RED BLOOD CELL COUNT(AUTO) 4.45 MIL/uL (4.2-6.2); RED CELL DISTRIBUTION WIDTH 13.5 % (9.0-15.0); WHITE BLOOD COUNT (AUTO) 5.7 K/uL (4.8-10.8)
[2024-09-01 09:55] LABS: ALBUMIN 3.6 g/dL (3.4-4.8); CALCIUM 8.6 mg/dL (8.4-11.0); CREATININE 0.71 mg/dL (0.55-1.30); TOTAL BILIRUBIN 1.7 mg/dL (0.0-1.0); TOTAL PROTEIN, SERUM 6.7 g/dL (6.4-8.3)
[2024-09-01 10:00] VITALS: O2SAT 97
[2024-09-01 11:07] LABS: INR 1.1 (0.80-1.20); PROTHROMBIN TIME 11.6 SECS (9.5-12.5)
[2024-09-01 11:16] VITALS: BP_SYST 150; PULSE 121; RESP 16; TEMP 99; O2SAT 96
[2024-09-01 15:14] VITALS: BP_SYST 138; PULSE 117; RESP 16; TEMP 98.1; O2SAT 100
[2024-09-01 20:00] VITALS: BP_SYST 145; PULSE 96; RESP 18; TEMP 97.8; O2SAT 98
[2024-09-02] VITALS: BP_SYST 116; PULSE 102; RESP 18; TEMP 97.8; O2SAT 97
[2024-09-02 08:00] VITALS: BP_SYST 152; PULSE 112; RESP 24; TEMP 98; O2SAT 95
[2024-09-02 08:06] LABS: HEPATITIS A AB, IgM Negative (Negative); HEPATITIS B CORE AB, IgM Negative (Negative); HEPATITIS B SURFACE AG Negative (Negative); HEPATITIS C VIRUS AB Non Reactive (Non Reactive)
[2024-09-02] MEDS ORDERED: iohexoL 350 mgI/mL, 100 ML INFUS..BTL IV ONE (08:20)
[2024-09-02 10:28] LABS: BASOPHILS % (AUTO) 0.3 % (0.0-2.0); EOSINOPHILS # (AUTO) 0.1 K/uL (0.0-0.4); EOSINOPHILS % (AUTO) 1.5 % (0.0-4.0); HEMATOCRIT 39.5 % (36-54); HEMOGLOBIN 13.4 g/dL (14.0-18.0); LYMPHOCYTES # (AUTO) 0.7 K/uL (1.0-5.5); LYMPHOCYTES % (AUTO) 12.7 % (20.5-51.5); MEAN CORPUSCULAR HEMOGLOBIN 31 pg (27-31); MEAN CORPUSCULAR HGB CONC 34 % (32-36); MEAN CORPUSCULAR VOLUME 90 fL (79.0-98.0); MONOCYTES # (AUTO) 0.5 K/uL (0.0-1.0); MONOCYTES % (AUTO) 8.4 % (1.7-9.3); NEUTROPHILS # (AUTO) 4.5 K/uL (1.8-7.7); NEUTROPHILS % (AUTO) 77.1 % (40.0-70.0); PLATELET COUNT (AUTO) 78 K/uL (130-430); RED CELL DISTRIBUTION WIDTH 13.8 % (9.0-15.0); WHITE BLOOD COUNT (AUTO) 5.8 K/uL (4.8-10.8)
[2024-09-02 10:39] VITALS: O2SAT 92
[2024-09-02 10:49] LABS: ALBUMIN 3.4 g/dL (3.4-4.8); CALCIUM 8.4 mg/dL (8.4-11.0); CREATININE 0.66 mg/dL (0.55-1.30); POTASSIUM 3.1 mmol/L (3.5-5.1); TOTAL BILIRUBIN 1.5 mg/dL (0.0-1.0); TOTAL PROTEIN, SERUM 6.6 g/dL (6.4-8.3)
[2024-09-02 13:35] VITALS: BP_SYST 159; PULSE 88; RESP 16; TEMP 97.6; O2SAT 95
[2024-09-02 16:00] VITALS: BP_SYST 147; PULSE 102; RESP 18; TEMP 98.2; O2SAT 97
[2024-09-02 16:52] VITALS: BP_SYST 147; PULSE 104; RESP 18; TEMP 98.2; O2SAT 97
[2024-09-02] MEDS ORDERED: SERT-131 PO (17:11)
[2024-09-02] MEDS ORDERED: GABA-331 PO (17:11)
== END 2024-09-02 17:59 | disposition home or self-care (01) | DRG 816 ==
LOC: SED 17:49 → STU 08-29 04:59 → SMU 09-01 14:18
PROVIDERS: ADMIT General Practice; ATTEND General Practice
PROC: 05HY33Z Insertion of Infusion Device into Upper Vein, Percutaneous Approach (ICD-10-PCS; principal; 2024-08-31)
DX: T51.91XA Toxic effect of unspecified alcohol, accidental (unintentional), initial encounter (principal); R65.11 Systemic inflammatory response syndrome (SIRS) of non-infectious origin with acute organ dysfunction; G92.8 Other toxic encephalopathy; I85.10 Secondary esophageal varices without bleeding; R45.851 Suicidal ideations; K70.30 Alcoholic cirrhosis of liver without ascites; F10.229 Alcohol dependence with intoxication, unspecified; F10.230 Alcohol dependence with withdrawal, uncomplicated; F32.A Depression, unspecified; G40.909 Epilepsy, unspecified, not intractable, without status epilepticus; Z79.899 Other long term (current) drug therapy; Z87.891 Personal history of nicotine dependence; Z90.49 Acquired absence of other specified parts of digestive tract
CPT/HCPCS: 36415; 72191; 74175; 76700; 80048; 80053; 80074; 80076; 82105; 83605; 85025; 85610; 99285; G0378; G0482; J1200; J1630; J2060; J7030; Q9967

== ENCOUNTER 2024-09-04 06:09 | Emergency (ER) | payer MEDICAID ==
[~2024-09-04] VITALS: Ht 167.6 cm; Wt 103.4 kg
[~2024-09-04 06:09] MED LIST changes: -CHLO25CA11 PO; +GABA-331 PO; -LORA-259 PO; -NEU100 PO; +SERT-131 PO; -SERT100T PO
[2024-09-04 06:15] VITALS: BP_SYST 118; PULSE 112; RESP 16; TEMP 98.6; O2SAT 97
[2024-09-04 07:01] LABS: BASOPHILS % (AUTO) 0.6 % (0.0-2.0); EOSINOPHILS # (AUTO) 0.4 K/uL (0.0-0.4); EOSINOPHILS % (AUTO) 6.5 % (0.0-4.0); HEMATOCRIT 41.7 % (36-54); HEMOGLOBIN 14.1 g/dL (14.0-18.0); LYMPHOCYTES # (AUTO) 1.9 K/uL (1.0-5.5); LYMPHOCYTES % (AUTO) 28.7 % (20.5-51.5); MEAN CORPUSCULAR HEMOGLOBIN 31 pg (27-31); MEAN CORPUSCULAR HGB CONC 34 % (32-36); MEAN CORPUSCULAR VOLUME 91 fL (79.0-98.0); MONOCYTES % (AUTO) 14.6 % (1.7-9.3); NEUTROPHILS # (AUTO) 3.3 K/uL (1.8-7.7); NEUTROPHILS % (AUTO) 49.6 % (40.0-70.0); PLATELET COUNT (AUTO) 120 K/uL (130-430); RED BLOOD CELL COUNT(AUTO) 4.59 MIL/uL (4.2-6.2); RED CELL DISTRIBUTION WIDTH 13.9 % (9.0-15.0); WHITE BLOOD COUNT (AUTO) 6.6 K/uL (4.8-10.8)
[2024-09-04 07:04] LABS: PROTHROMBIN TIME 10.4 SECS (9.5-12.5)
[2024-09-04 07:09] LABS: ALBUMIN 3.3 g/dL (3.4-4.8); CALCIUM 8.7 mg/dL (8.4-11.0); CREATININE 0.79 mg/dL (0.55-1.30); POTASSIUM 3.2 mmol/L (3.5-5.1); TOTAL BILIRUBIN 0.8 mg/dL (0.0-1.0); TOTAL PROTEIN, SERUM 6.9 g/dL (6.4-8.3)
[2024-09-04 07:29] LABS: BILIRUBIN,URINE NEGATIVE (NEGATIVE); BLOOD, URINE NEGATIVE (NEGATIVE); CLARITY/URINE CLEAR (CLEAR); COLOR,URINE YELLOW (YELLOW); GLUCOSE,URINE NEGATIVE (NEGATIVE); KETONES,URINE NEGATIVE (NEGATIVE); LEUKOCYTE ESTERASE ,URINE NEGATIVE (NEGATIVE); NITRITE, URINE NEGATIVE (NEGATIVE); PROTEIN URINE NEGATIVE (NEGATIVE); UROBILINOGEN,URINE 0.2 (0.2-1.0)
[2024-09-04 07:38] LABS: BILIRUBIN,DIRECT 0.3 mg/dL (0.0-0.3)
[2024-09-04] MEDS ORDERED: OMEP20CA15 PO (08:02)
[2024-09-04 08:11] VITALS: BP_SYST 125; PULSE 102; RESP 18; TEMP 98.3; O2SAT 93
== END 2024-09-04 08:11 | disposition home or self-care (01) ==
LOC: SED 06:09
DX: K92.0 Hematemesis (principal); K70.30 Alcoholic cirrhosis of liver without ascites; R10.84 Generalized abdominal pain; F32.A Depression, unspecified; Z79.899 Other long term (current) drug therapy
CPT/HCPCS: 36415; 80048; 80076; 81001; 81003; 82150; 83605; 83690; 85025; 85610; 85730; 99283